=== PATIENT | male | born 1980 | race Caucasian/White ===

== ENCOUNTER 2018-06-15 18:20 | Emergency (ER) | payer SELFPAY ==
[2018-06-15] MEDS ORDERED: IBUPROFEN 600 MG TAB PO ONE (18:49)
[2018-06-15] MEDS ORDERED: PENICILLIN VK 500 MG TAB PO ONE (18:50)
--- NOTE | 2018-06-15 18:56 | EDPHY ---
H & P Time Seen by Provider: 06/15/18 18:36 HPI/ROS: HPI Dental pain. 38-year-old male by private vehicle. This patient complains of left lower mid molar pain. He reports that he bit down on some food the other night. He thinks that he took out a piece of a filling from his left 2nd molar. He complains of pain emanating from this space in spreading down through his lower jaw and the left side of his face. He has not had a fever. No difficulty swallowing. No sensation of swelling in his neck. No voice changes. No other complaint. He states that he does have a appointment for a dentist but not into fill the of next month. ROS: Constitutional: No fever, no chills. No weakness. Eyes: No discharge. No changes in vision. ENT: No sore throat. No nasal congestion or rhinorrhea. As above. Musculoskeletal: Neck pain. Skin: No rashes. Neurological: No headache. No focal weakness or altered sensation. Past medical history: Laminectomy, hernia. Social history: Nonsmoker. Here by himself. Denies alcohol Physical Exam: General Appearance: Alert, no distress. This patient is responding to questions appropriately and in full sentences. This patient appears well- hydrated and well-nourished. Eyes: Pupils equal and round no pallor or injection. No lid edema, erythema or injection. ENT, Mouth: Mucous membranes are moist. The pharyngeal tissues are unremarkable. No edema or swelling. No asymmetry suggestive of abscess. No erythema or exudates. Patient does have some tenderness on apical compression with a tongue blade over these left 2nd lower molar. I do not identify a dental fracture or missing filling. There is no significant donovan gingival swelling. No purulent drainage. No gross evidence of trauma. He does not have any significant swelling noted of his left facial and mandibular soft tissues. No significant submandibular or submental lymphadenopathy. The tongue is not elevated. Neurological: Motor sensory function is grossly intact. Cranial nerves are normal. Gait is normal. Skin: Warm and dry, no rashes. Musculoskeletal: Neck is supple and nontender. No pain on flexion of the neck. Extremities are symmetrical. All joints range without pain or impingement. Psychiatric: No agitation. No depression. Database: EKG: Imaging: Procedures: Inferior alveolar nerve block: 2.5 cc of bupivacaine without epinephrine injected into the concavity at the anterior border of the ramus of the mandible just behind the 3rd molar. Procedure tolerated well without complication. Excellent local anesthesia obtained. Emergency department course: Triage vital signs reviewed and are normal. Patient is afebrile. Inferior alveolar nerve block as above. Patient also given 600 mg of ibuprofen and 500 mg of penicillin orally. Plan will be to have him follow up at dental aide at their walk-in clinic in the next 2 days for re-evaluation. I will prescribe him high-dose ibuprofen as well as penicillin from the emergency department. He feels comfortable going home. Follow-up and return to emergency department precautions reviewed in detail with him. All of his questions were answered. He was discharged from the emergency department in good condition. Differential Diagnosis: The differential diagnosis on this patient includes but is not limited to apical abscess, dental fracture. Dry socket unlikely. This represents a partial list of diagnoses considered. These considerations are based on history , physical exam, past history, reassessment and diagnostic testing. Smoking Status: Heavy smoker Constitutional: Initial Vital Signs Temperature (C) 36.9 C 06/15/18 18:29 Heart Rate 60 06/15/18 18:29 Respiratory Rate 16 06/15/18 18:29 Blood Pressure 131/76 H 06/15/18 18:29 O2 Sat (%) 94 06/15/18 18:29 O2 Delivery Mode Room Air Allergies/Adverse Reactions: No Known Allergies Allergy (Verified 06/15/18 18:28) Home Medications: Medication Instructions Recorded No Medications [NO HOME 0 ea MISC 09/13/11 MEDICATIONS] oxyCODONE/APAP 5/325 [Percocet 1 tab PO Q4-6PRN PRN #14 tab 09/13/11 5/325] Penicillin V Potassium [Pen Vk 500 mg PO QID #30 tab 06/15/18 500mg (*)] Departure - Departure Disposition: Home, Routine, Self-Care Clinical Impression: Pain, dental Condition: Good Instructions: Toothache (ED) Additional Instructions: Read and follow provided instructions. Follow-up with your dentist or dental aide at their walk-in clinic as discussed in the next 1-2 days. He will have to call their clinic in the morning. They have been very accommodating of our patients getting into see them. Take antibiotic as prescribed. Ibuprofen dosin mg every 6 hours with meals for the next 3 days only. Take only as needed for pain. Return to the emergency department for worsening pain, facial swelling, fever, difficulty swallowing or other serious concerns. Referrals: [facility] [Outside] - As per Instructions Prescriptions: Penicillin V Potassium [Pen Vk 500mg (*)] 500 mg PO QID #30 tab
[2018-06-15 19:24] VITALS: BP 118/67
== END 2018-06-15 19:24 | disposition home or self-care (01) ==
PROC: 3E0X3BZ Introduction of Anesthetic Agent into Cranial Nerves, Percutaneous Approach (ICD-10-PCS; principal; 2018-06-15)
DX: K08.89 Other specified disorders of teeth and supporting structures (principal)